=== PATIENT | female | born 1980 | race Caucasian/White ===

== ENCOUNTER 2017-02-04 15:27 | Emergency (ER) | payer MEDICAID ==
[2017-02-04 16:09] LABS: BASOPHILS 0.3 % (0-2); EOSINOPHILS 2.1 % (0-7); HEMATOCRIT 39.7 % (36.0-48.0); HEMOGLOBIN 13.3 g/dL (12-16); IMMATURE GRANULOCYTES 0.4 % (0-5); LYMPHOCYTES 39.4 % (15-50); MCH 28.7 pg (26.0-34.0); MCHC 33.5 g/dL (31.0-37.0); MCV 85.7 fL (80.0-100.0); MEAN PLATELET VOLUME 9.8 fL (7.4-10.4); MONOCYTES 5.9 % (2-11); NEUTROPHILS 51.9 % (40-80); PLATELET COUNT 173 10x3/uL (130-400); RBC 4.63 10x6/uL (4.00-5.40); RDW 13.8 % (11.5-14.5); WBC 6.8 10x3/uL (4.8-10.8)
[2017-02-04 16:29] LABS: ALBUMIN 3.3 g/dL (3.4-5.0); ALKALINE PHOSPHATASE 156 U/L (46-116); ALT (SGPT) 91 U/L (10-68); CALC OSMOLALITY 289 mosm/kg (275-300); CALCIUM 9.1 mg/dL (8.5-10.1); CARBON DIOXIDE 22.9 mmol/L (21.0-32.0); CHLORIDE - SERUM 101 mmol/L (98-107); CREATININE - SERUM 0.9 mg/dL (0.6-1.3); GLUCOSE 306 mg/dL (74-106); POTASSIUM - SERUM 4.3 mmol/L (3.5-5.1); PROTEIN - SERUM 6.9 g/dL (6.4-8.2); SODIUM 138 mmol/L (136-145); UREA NITROGEN 17 mg/dL (7-18); eGFR NON AFRICAN AMERICAN 76 mL/min (90-120)
[2017-02-04 16:36] LABS: APPEARANCE CLEAR (CLEAR); BILIRUBIN NEGATIVE (NEGATIVE); COLOR YELLOW (YELLOW); GLUCOSE 50 mg/dL (NEGATIVE); KETONE NEGATIVE (NEGATIVE); LEUKOCYTE ESTERASE TRACE (NEGATIVE); NITRITE NEGATIVE (NEGATIVE); PROTEIN TRACE mg/dL (NEGATIVE); UROBILINOGEN NORMAL (NORMAL)
[2017-02-04 16:37] LABS: BACTERIA FEW /hpf (NONE SEEN); EPITHELIAL CELLS 0-5 /hpf (0-5); RED CELLS - URINE OCC /hpf (0-5); WHITE CELLS - URINE 0-5 /hpf (0-5); YEAST <1+ /hpf (NONE SEEN)
[2017-02-04 17:50] LABS: AMYLASE - SERUM 29 U/L (25-115); LIPASE 108 U/L (73-393)
== END 2017-02-04 19:24 | disposition home or self-care (01) ==
LOC: D.ER 15:27
PROVIDERS: Emergency Medicine; Nurse Practitioner Acute Care
DX: R10.31 Right lower quadrant pain (principal); R50.9 Fever, unspecified; R11.2 Nausea with vomiting, unspecified; R19.7 Diarrhea, unspecified; E10.9 Type 1 diabetes mellitus without complications; Z79.4 Long term (current) use of insulin; I10 Essential (primary) hypertension; Z90.13 Acquired absence of bilateral breasts and nipples; F17.200 Nicotine dependence, unspecified, uncomplicated; Z85.3 Personal history of malignant neoplasm of breast

== ENCOUNTER 2017-02-22 19:52 | Emergency (ER) | payer MEDICAID ==
[2017-02-22 21:00] LABS: APPEARANCE CLEAR (CLEAR); COLOR YELLOW (YELLOW)
[2017-02-22 21:01] LABS: BILIRUBIN NEGATIVE (NEGATIVE); GLUCOSE 1000 mg/dL (NEGATIVE); KETONE LARGE mg/dL (NEGATIVE); LEUKOCYTE ESTERASE NEGATIVE (NEGATIVE); NITRITE NEGATIVE (NEGATIVE); PROTEIN NEGATIVE (NEGATIVE); UROBILINOGEN NORMAL (NORMAL)
[2017-02-22 21:02] LABS: EPITHELIAL CELLS 0-5 /hpf (0-5)
[2017-02-22 21:35] LABS: BASOPHILS 0.2 % (0-2); EOSINOPHILS 0.1 % (0-7); HEMATOCRIT 41.7 % (36.0-48.0); HEMOGLOBIN 14.5 g/dL (12-16); IMMATURE GRANULOCYTES 0.7 % (0-5); LYMPHOCYTES 27.3 % (15-50); MCH 28.8 pg (26.0-34.0); MCHC 34.8 g/dL (31.0-37.0); MCV 82.7 fL (80.0-100.0); MEAN PLATELET VOLUME 9.8 fL (7.4-10.4); NEUTROPHILS 64.7 % (40-80); RBC 5.04 10x6/uL (4.00-5.40); RDW 13.7 % (11.5-14.5)
[2017-02-22 21:36] LABS: PLATELET COUNT 324 10x3/uL (130-400)
[2017-02-22 21:47] LABS: ALBUMIN 3.9 g/dL (3.4-5.0); ANION GAP 25.4 mmol/L (8-16); BILIRUBIN - TOTAL 0.48 mg/dL (0.2-1.3); CARBON DIOXIDE 14.4 mmol/L (21.0-32.0); CREATININE - SERUM 1.5 mg/dL (0.6-1.3); POTASSIUM - SERUM 3.8 mmol/L (3.5-5.1)
[2017-02-24 00:28] VITALS: BMI 41.6
== END 2017-02-22 21:30 | disposition left against medical advice (07) ==
LOC: D.ER 19:52
PROVIDERS: Emergency Medicine
DX: E10.65 Type 1 diabetes mellitus with hyperglycemia (principal); Z79.4 Long term (current) use of insulin

== ENCOUNTER 2017-02-23 20:39 | Inpatient (IN) | payer MEDICAID ==
[~2017-02-23] VITALS: Ht 165.1 cm; Wt 112.0 kg
[2017-02-23 21:14] LABS: APPEARANCE CLEAR (CLEAR); BILIRUBIN NEGATIVE (NEGATIVE); COLOR STRAW (YELLOW); GLUCOSE 1000 mg/dL (NEGATIVE); KETONE NEGATIVE (NEGATIVE); LEUKOCYTE ESTERASE NEGATIVE (NEGATIVE); NITRITE NEGATIVE (NEGATIVE); PROTEIN NEGATIVE (NEGATIVE); SPECIFIC GRAVITY 1.005 (1.005-1.020); UROBILINOGEN NORMAL (NORMAL)
[2017-02-23 21:37] LABS: BASOPHILS 0.1 % (0-2); EOSINOPHILS 0.1 % (0-7); HEMATOCRIT 37.2 % (36.0-48.0); HEMOGLOBIN 12.7 g/dL (12-16); IMMATURE GRANULOCYTES 0.5 % (0-5); LYMPHOCYTES 28.5 % (15-50); MCH 29.3 pg (26.0-34.0); MCHC 34.1 g/dL (31.0-37.0); MCV 85.7 fL (80.0-100.0); MEAN PLATELET VOLUME 9.8 fL (7.4-10.4); MONOCYTES 8.4 % (2-11); NEUTROPHILS 62.4 % (40-80); PLATELET COUNT 256 10x3/uL (130-400); RBC 4.34 10x6/uL (4.00-5.40); RDW 13.7 % (11.5-14.5); WBC 9.3 10x3/uL (4.8-10.8)
[2017-02-23 21:46] LABS: KETONE - SERUM NEGATIVE (NEGATIVE)
[2017-02-23 21:56] LABS: ALBUMIN 3.2 g/dL (3.4-5.0); ALKALINE PHOSPHATASE 168 U/L (46-116); BILIRUBIN - TOTAL 0.18 mg/dL (0.2-1.3); CALCIUM 8.7 mg/dL (8.5-10.1); CHLORIDE - SERUM 92 mmol/L (98-107); CREATININE - SERUM 1.6 mg/dL (0.6-1.3); POTASSIUM - SERUM 3.6 mmol/L (3.5-5.1); PROTEIN - SERUM 7.6 g/dL (6.4-8.2); SODIUM 127 mmol/L (136-145); UREA NITROGEN 27 mg/dL (7-18); eGFR NON AFRICAN AMERICAN 39 mL/min (90-120)
[2017-02-23 21:58] LABS: ALT (SGPT) 18 U/L (10-68); CALC OSMOLALITY 285 mosm/kg (275-300); GLUCOSE 571 mg/dL (74-106)
[2017-02-24] VITALS (7 sets, daily range): BP systolic 104–167; BP diastolic 55–78; Ht 165.1 cm; Wt 112.0 kg
--- NOTE | 2017-02-24 00:05 | NUR ---
PT ARRIVES TO FLOOR VIA WC FROM ER TO ROOM. UPON ARRIVAL PT IS IN NO ACUTE DISTRESS, DENIES ANY PAIN OR DISOCMFORT. VSS, AFEBRILE. NS @ 125 CC/HR CONNECTED TO RIGHT WRIST 20 GA ANGIOCATH, INFUSING WITHOUT DIFFICULTY. MEDICATIONS DISCUSSED. SMOKING CESSATION COUNSELING PROVIDED. UNIT ROUTINES AND PROTOCOLS DISCUSSED. PT VERBALIZES UNDERSTANDING. AFTER ASSESSMENT COMPLETED PT AMBULATES OFF FLOOR TO "SMOKE". WILL CONT TO MONITOR.
[2017-02-24] MEDS ORDERED: LEVOTHYROXINE137 MCG PO (00:10)
[2017-02-24] MEDS ORDERED: GLUCOPHAGE850 MG PO (00:10)
[2017-02-24] MEDS ORDERED: NOVOLOG100 U/M1 SC (00:11)
[2017-02-24] MEDS ORDERED: LANTUS SOL100 UNIT/1 SC (00:11)
[2017-02-24] MEDS ORDERED: ZOFRAN ODT4 MG/UDTAB PO (00:12)
[2017-02-24] MEDS ORDERED: RESTORIL15 MG PO (00:13)
[2017-02-24] MEDS ORDERED: ZANAFLEX6 MG PO (00:13)
[2017-02-24] MEDS ORDERED: LIPITOR40 MG PO (00:19)
[2017-02-24] MEDS ORDERED: LOSARTAN POTASS25 MG PO (00:19)
--- NOTE | 2017-02-24 02:30 | NUR ---
PT AMBULATING IN HALLS AND STATES IS "WALKING OUTSIDE TO SMOKE". PT REMINDED OF SMOKING HAZARDS AND ALSO INSTRUCTED THIS IS A SMOKE FREE FACILITY.
--- NOTE | 2017-02-24 05:14 | NUR ---
PT STATES FEELING GLUCOSE IS TOO HIGH. ACCUCHECK DONE AT BEDSIDE X2, BOTH REPORTEDLY WERE "HI". STAT GLUCOSE ORDERED AND LAB CALLED AND NOTIFIED OF STAT ORDER FOR GLUCOSE CHECK. AWAITING LAB DRAW
[2017-02-24 05:46] LABS: BASOPHILS 0.1 % (0-2); EOSINOPHILS 0.3 % (0-7); HEMATOCRIT 34.5 % (36.0-48.0); HEMOGLOBIN 11.5 g/dL (12-16); IMMATURE GRANULOCYTES 0.6 % (0-5); LYMPHOCYTES 26.6 % (15-50); MCH 28.7 pg (26.0-34.0); MCHC 33.3 g/dL (31.0-37.0); MEAN PLATELET VOLUME 9.6 fL (7.4-10.4); MONOCYTES 8.1 % (2-11); NEUTROPHILS 64.3 % (40-80); PLATELET COUNT 191 10x3/uL (130-400); RBC 4.01 10x6/uL (4.00-5.40); RDW 13.8 % (11.5-14.5); WBC 7.8 10x3/uL (4.8-10.8)
--- NOTE | 2017-02-24 05:49 | NUR ---
LAB HAS DRAWN PT, HUMALOG 20 UNITS SC GIVEN PER S/S. AWAITING FURTHER ORDERS FROM LABORER [facility] PHYSICIAN AT THIS TIME.
[2017-02-24 05:59] LABS: ANION GAP 19.7 mmol/L (8-16); CALCIUM 8.1 mg/dL (8.5-10.1); CARBON DIOXIDE 18.3 mmol/L (21.0-32.0)
--- NOTE | 2017-02-24 06:20 | NUR ---
GLUCOSE RESULTS - 658. PHYSICIAN NOTIFIED. WILL RECHECK 0700.
--- NOTE | 2017-02-24 07:30 | NUR ---
RESTING QUIETLY NAD NOTED
--- NOTE | 2017-02-24 09:11 | NUR ---
ASSESSMENT COMPLETED. NO TELEMERTY. IV TO RIGHT FORE ARM WITH NS AT 125. UP AB DAVID. DENIES ANY NEEDS AT PRESENT TIME. CALL LIGHT IN REACH.
[2017-02-25] VITALS: BP 133/65
[2017-02-25 04:00] VITALS: BP 128/62
[2017-02-25 06:19] LABS: BASOPHILS 0.6 % (0-2); HEMATOCRIT 36.2 % (36.0-48.0); HEMOGLOBIN 12.2 g/dL (12-16); IMMATURE GRANULOCYTES 0.4 % (0-5); MCHC 33.7 g/dL (31.0-37.0); MEAN PLATELET VOLUME 11.2 fL (7.4-10.4); MONOCYTES 7.2 % (2-11); NEUTROPHILS 56.8 % (40-80); PLATELET COUNT 186 10x3/uL (130-400); RBC 4.21 10x6/uL (4.00-5.40); RDW 14.3 % (11.5-14.5); WBC 7.9 10x3/uL (4.8-10.8)
[2017-02-25 06:29] LABS: ANION GAP 16.3 mmol/L (8-16); CALCIUM 8.5 mg/dL (8.5-10.1); CARBON DIOXIDE 21.2 mmol/L (21.0-32.0); POTASSIUM - SERUM 4.5 mmol/L (3.5-5.1)
--- NOTE | 2017-02-25 08:11 | NUR ---
ASSESSMENT DONE. DENIES NEEDS.
[2017-02-25 09:17] VITALS: BP 138/77
--- NOTE | 2017-02-25 09:57 | NUR ---
RESTS IN BED. IV PATENT. CALL LIGHT IN REACH. WILL CONT. PLAN OF CARE.
[2017-02-25 12:00] VITALS: BP 139/77
--- NOTE | 2017-02-25 14:51 | NUR ---
DC GIVEN TO PT
--- NOTE | 2017-02-25 14:53 | NUR ---
DC HOME PER PERSONAL CAR
--- NOTE | 2017-02-25 17:59 | NUR ---
Patient Name: ESTELITA MILES Admission Status: ER Accout number: [id number] Admission Date: 02-23-2017 : 1980 Admission Diagnosis: Attending: HANNAH Current LOS: 2 Anticipated DC Date: 02-25-2017 Planned Disposition: Home Primary Insurance: MEDICAID [place] LATE ENTRY: Discharge Planning Comments: * Is the patient Alert and Oriented? Yes 0 * How many steps to enter\exit or inside your home? RAMP 0 * PCP [facility] [place] [facility] * Pharmacy [facility] 0 * Preadmission Environment Home with Family 0 * ADLs Independent 0 * Equipment Glucometer Other 0 * Other Equipment INSULIN PUMP NO MEDICAL EQUIPMENT PROVIDER PREFERENCE 0 * List name and contact numbers for known caregivers / representatives who currently or will assist patient after discharge: CECILIO MILES, 0 * Community resources currently utilized None 0 * Please name any agencies selected above. NONE 0 * Additional services required to return to the preadmission environment? No 0 * Can the patient safely return to the preadmission environment? Yes 0 * Has this patient been hospitalized within the prior 30 days at any hospital? No 0 CM MET WITH PT IN ROOM TO DISCUSS DISCHARGE PLANNING AND NEEDS. PT REPORTS LIVING AT HOME INDEPENDENTLY WITH HER SPOUSE. PT HAS INSULIN PUMP AND GLUCOMETER WITH NO MEDICAL EQUIPMENT PROVIDER PREFERENCE. PT HAS NO OUTSIDE SERVICES ASSISTING IN THE HOME. CM DISCUSSED AVAILABILITY OF HOME HEALTH, REHAB SERVICES AND MEDICAL EQUIPMENT. PT DENIES DISCHARGE NEEDS, REPORTS HER SPOUSE WILL PICK HER UP FOR DISCHARGE HOME. Motor Installer: Jose Antonio Anne
--- NOTE | 2017-02-26 16:08 | DS ---
PATIENT:ESTELITA MILES :[birth year] MEDICAL RECORD: [id number] DISCHARGE SUMMARY ADMISSION DATE: 02/23/17 DISCHARGE DATE: 02/25/17 ADMISSION DATE: 02/23/2017 DISCHARGE DATE: 02/25/2017. ADMITTING DIAGNOSES: 1. Type 1 diabetes mellitus with hyperglycemia. 2. Lumbar radiculopathy, under the pain care of a pain specialist. She has been getting steroid injections. 3. Headache. 4. History of migraine. 5. Neck Pain. 6. Nicotine dependence with withdrawal. 7. Hypothyroid disease. HOSPITAL COURSE: This is a lady followed by [facility] provider admitted with diagnoses as outlined above. Details are well-outlined in the history of the present illness, H&P. All events, lab procedures and diagnostic testing are well documented in the records. The patient was admitted, started on Accu-Chek high resistant sliding scale insulin and had a pseudohyponatremia due to the hyperglycemia. Her other appropriate home medicines continued. She was transitioned from a clear liquid diet to a regular diabetic diet. She was placed on a nicotine patch; however, she is ambulating the halls reportedly going outside and smoking tolerating her diet. Blood sugars have improved. She is on a PPI and SCDs, PPI for GI prophylaxis, SCDs for DVT prophylaxis. Her lactic acid normalized. She is stable for dismissal home. VITAL SIGNS: Afebrile, pulse 72, respirations 16, blood pressure 138/77 and O2 sat 98% on room air. LABORATORY DATA: Lactic acid 1.6. White blood cells 7.9, hemoglobin 12.2, platelets 186. Sodium 138, potassium 4.5, chloride 105, CO2 of 21, BUN 21, serum creatinine 1, glucose 206, 192, 110 last night, so they are improved. She is stable for dismissal home. DIAGNOSES: 1. Type 1 diabetes mellitus with hyperglycemia. 2. Lumbar radiculopathy, under the pain care of a pain specialist. She has been getting steroid injections. 3. Headache. 4. History of migraine. 5. Neck pain. 6. Nicotine dependence with withdrawal. 7. Hypothyroid disease. She had pseudohyponatremia secondary to hyperglycemia. Her hyperglycemia has resolved. She has juvenile-onset diabetes since the age 6, chronic migraine. She is to follow up with her physician at [facility] in 1 week. She is to follow up with her pain specialist for pain medications. Her hyperglycemia felt secondary induced by steroid injection. Greater than 30 minutes was spent on this discharge. Please refer to her med DISCHARGE SUMMARY REPORT [id number] ESTELITA MILES MANGO rec. TRANSINT:[id number] Voice Confirmation ID: [id number] DOCUMENT ID: [id number] Dictated By: GEORGE ALONSO RN I have interviewed/examined the above patient and agree with these documented findings. IDALIA RAINEY MD at 1608 CC: [id number] DICTATION DATE: 02/25/17 1233 LATEX CASTER: 02/26/17 0137 DIS IN 02/25/17 [id number] [place] [address]
== END 2017-02-25 14:53 | disposition home or self-care (01) | DRG 638 ==
LOC: D.ER 20:39 → D.M2 23:26
PROVIDERS: Emergency Medicine; ADMIT Family Medicine
DX: E10.65 Type 1 diabetes mellitus with hyperglycemia (principal); F17.203 Nicotine dependence unspecified, with withdrawal; E10.40 Type 1 diabetes mellitus with diabetic neuropathy, unspecified; Z79.4 Long term (current) use of insulin; M54.2 Cervicalgia; M54.16 Radiculopathy, lumbar region; E78.5 Hyperlipidemia, unspecified; E03.9 Hypothyroidism, unspecified; G43.909 Migraine, unspecified, not intractable, without status migrainosus

== ENCOUNTER 2017-05-14 11:00 | Emergency (ER) | payer MEDICAID ==
[2017-02-24 00:28] VITALS: BMI 41.6
[~2017-05-14 11:00] MED LIST: GLUCOPHAGE850 MG PO; LANTUS SOL100 UNIT/1 SC; LEVOTHYROXINE137 MCG PO; LIPITOR40 MG PO; LOSARTAN POTASS25 MG PO; NOVOLOG100 U/M1 SC; RESTORIL15 MG PO; ZANAFLEX6 MG PO; ZOFRAN ODT4 MG/UDTAB PO
== END 2017-05-14 12:20 | disposition home or self-care (01) ==
LOC: D.ER 11:00
DX: R60.9 Edema, unspecified (principal); F17.200 Nicotine dependence, unspecified, uncomplicated

== ENCOUNTER 2017-12-03 19:05 | Emergency (ER) | payer MEDICAID ==
[2017-02-24 00:28] VITALS: BMI 41.6
== END 2017-12-03 20:26 | disposition home or self-care (01) ==
LOC: D.ER 19:05
DX: G43.909 Migraine, unspecified, not intractable, without status migrainosus (principal); I10 Essential (primary) hypertension; E10.9 Type 1 diabetes mellitus without complications; Z79.4 Long term (current) use of insulin; F17.200 Nicotine dependence, unspecified, uncomplicated

== ENCOUNTER 2019-04-06 14:05 | Emergency (ER) | payer MEDICAID ==
[~2019-04-06] VITALS: Ht 165.1 cm; Wt 118.2 kg
[2019-04-06 14:27] VITALS: Ht 165.1 cm; Wt 118.2 kg
[2019-04-06] MEDS ORDERED: [UNRECOGNIZED DRUG - SUPPLY] (14:30)
[2019-04-06 15:49] VITALS: BP 132/66
== END 2019-04-06 16:23 | disposition home or self-care (01) ==
LOC: D.ER 14:05
DX: G43.909 Migraine, unspecified, not intractable, without status migrainosus (principal); I10 Essential (primary) hypertension; E11.9 Type 2 diabetes mellitus without complications